=== PATIENT | female | born 1960 | race Two or more races ===

== ENCOUNTER 2024-03-26 15:02 | Emergency (ER) | payer OTHER ==
[~2024-03-26] VITALS: Ht 157.5 cm; Wt 61.2 kg
[2024-03-26] MEDS: MORPHINE SULFATE INJ 2 MG/ML DISP.SYRIN IM ONE (18:00)
[2024-03-26] MEDS: ONDANSETRON 4 MG TAB.RAPDIS SL ONE (18:00)
[2024-03-26] MEDS ORDERED: ONDANSETRON 4 MG TAB.RAPDIS ONE (18:04)
[2024-03-26] MEDS ORDERED: MORPHINE SULFATE INJ 4 MG/ML DISP.SYRIN ONE (18:04)
[2024-03-26] MEDS ORDERED: CYCL10TA9 PO (19:46)
[2024-03-26] MEDS ORDERED: NAPR-1164 PO (19:46)
[2024-03-26 19:58] VITALS: BP 153/83; TEMP 98.6; O2SAT 100
== END 2024-03-26 19:59 | disposition home or self-care (01) ==
LOC: ER 16:32
DX: S39.012A Strain of muscle, fascia and tendon of lower back, initial encounter (principal); S16.1XXA Strain of muscle, fascia and tendon at neck level, initial encounter; R51.9 Headache, unspecified; E78.00 Pure hypercholesterolemia, unspecified; V49.49XA Driver injured in collision with other motor vehicles in traffic accident, initial encounter; Y93.89 Activity, other specified; Y92.89 Other specified places as the place of occurrence of the external cause; Y99.8 Other external cause status
CPT/HCPCS: 99285; 72125; 96372; 70450; 72131; L0172; J2270; Q0162